=== PATIENT | female | born 1975 | race Caucasian/White ===

== ENCOUNTER → 2017-03-12 | Outpatient (CLI) | payer OTHER ==
[2017-03-12] VITALS (10 sets, daily range): BP systolic 10–130; BP diastolic 64–89; PULSE 64–81
[~2017-03-12] VITALS: Ht 167.6 cm; Wt 51.8 kg
[~2017-03-12] MED LIST: COLACE 100100 MG/CAP PO; NORCO 325 MG-51 TAB PO; PROVERA 10MG10 MG PO; PYRIDIUM200 M1 PO
[2017-03-12 09:57] LABS: PROTHROMBIN TIME 11.4 SECONDS (9.7-12.8)
== END ==
LOC: COL.RAD 09:00
PROVIDERS: Internal Medicine Gastroenterology
DX: K73.9 Chronic hepatitis, unspecified (principal)
CPT/HCPCS: J2250; J3010

== ENCOUNTER 2017-05-03 18:04 | Emergency (ER) | payer OTHER ==
[~2017-05-03] VITALS: Ht 167.6 cm; Wt 59.1 kg
[2017-05-03 18:07] VITALS: TEMP 98.4
[2017-05-03] MEDS ORDERED: PROVERA 10MG10 MG PO (18:48)
[2017-05-03 18:51] LABS: BASO % 0.8 % (0.0-2.0); EOS # 0.1 (0.0-0.7); EOS % 2.3 % (0-4.0); GRAN # 1.5 (1.4-6.5); GRAN % 31.6 % (42.2-75.2); LYMPH # 2.7 (1.2-3.4); LYMPH % 55.9 % (20.0-51.0); MEAN CELL VOLUME 98 fl (80.0-100.0); MEAN CORPUSCULAR HEMOGLOBIN 34 pg (27.0-31.0); MEAN CORPUSCULAR HGB CONC 34 g/dl (33.0-37.0); MEAN PLATELET VOLUME 11.2 fl (7.4-10.4); MONO # 0.4 (0.1-0.6); MONO % 9.2 % (1.7-9.3); PLATELET COUNT 169 K/mm3 (130-400); RED BLOOD COUNT 3.87 M/mm3 (4.10-5.30); WHITE BLOOD COUNT 4.8 K/mm3 (4.8-10.8)
[2017-05-03 18:56] LABS: PH 8 (5-8); SQUAMOUS EPITHELIAL 0-2 /hpf; URINE APPEARANCE Hazy; URINE BACTERIA None Seen /hpf; URINE BILIRUBIN Negative (NEGATIVE); URINE BLOOD Negative (NEGATIVE); URINE COLOR Yellow; URINE GLUCOSE Negative (NEGATIVE); URINE KETONE Negative (NEGATIVE); URINE RBC 0-2 /hpf; URINE UROBILINOGEN Negative (NEGATIVE); URINE WBC 0-2 /hpf
[2017-05-03 19:09] LABS: ADJUSTED CALCIUM 9.1 mg/dL (8.4-10.2); BILIRUBIN,TOTAL 0.5 mg/dL (0.0-1.0); CALCIUM 9.9 mg/dL (8.4-10.2); CREATININE, serum 0.81 mg/dL (0.52-1.25); POTASSIUM 4.2 mmol/L (3.4-5.0); TOTAL PROTEIN 8.5 gm/dL (6.4-8.2)
[2017-05-03 20:44] VITALS: BP 110/84; PULSE 75
== END 2017-05-03 20:44 | disposition home or self-care (01) ==
LOC: COL.ER 18:04
PROVIDERS: Emergency Medicine
DX: R10.84 Generalized abdominal pain (principal); R11.2 Nausea with vomiting, unspecified; R19.7 Diarrhea, unspecified
CPT/HCPCS: J2270; J2405; J7030; Q9967

== ENCOUNTER 2017-05-26 03:04 | Inpatient (IN) | payer OTHER ==
[~2017-05-26] VITALS: Ht 167.6 cm; Wt 61.8 kg
[2017-05-26] VITALS (137 sets, daily range): BP systolic 127–137; BP diastolic 86–97; PULSE 76–96; TEMP 98.1–98.9; O2SAT 84–100
[~2017-05-26 03:04] MED LIST changes: -COLACE 100100 MG/CAP PO; -NORCO 325 MG-51 TAB PO; -PYRIDIUM200 M1 PO
[2017-05-26] MEDS ORDERED: PYRIDIUM200 M1 PO (03:14)
[2017-05-26] MEDS ORDERED: NORCO 325 MG-51 TAB PO (03:14)
[2017-05-26] MEDS ORDERED: COLACE 100100 MG/CAP PO (03:14)
[2017-05-26 04:25] LABS: BASO % 0.2 % (0.0-2.0); EOS # 0.2 (0.0-0.7); EOS % 2.4 % (0-4.0); GRAN # 4.5 (1.4-6.5); GRAN % 68.2 % (42.2-75.2); LYMPH # 1.4 (1.2-3.4); LYMPH % 20.7 % (20.0-51.0); MEAN CELL VOLUME 102 fl (80.0-100.0); MEAN CORPUSCULAR HGB CONC 33 g/dl (33.0-37.0); MEAN PLATELET VOLUME 12.1 fl (7.4-10.4); MONO # 0.5 (0.1-0.6); MONO % 8.2 % (1.7-9.3); PLATELET COUNT 91 K/mm3 (130-400); RED BLOOD COUNT 2.16 M/mm3 (4.10-5.30); REDCELL DISTRIBUTION WIDTH-CV 12.1 % (11.5-14.5); WHITE BLOOD COUNT 6.6 K/mm3 (4.8-10.8)
[2017-05-26 04:26] LABS: HEMATOCRIT 22.1 % (37.0-47.0); HEMOGLOBIN 7.2 g/dl (12.5-16.0); MEAN CORPUSCULAR HEMOGLOBIN 33 pg (27.0-31.0); PH 5 (5-8); SQUAMOUS EPITHELIAL 0-2 /hpf; URINE APPEARANCE Clear; URINE BACTERIA None Seen /hpf; URINE BILIRUBIN Negative (NEGATIVE); URINE BLOOD 3+ (NEGATIVE); URINE COLOR Amber; URINE GLUCOSE Negative (NEGATIVE); URINE KETONE Negative (NEGATIVE); URINE RBC >50 /hpf; URINE UROBILINOGEN >=4.0 mg/dL (NEGATIVE)
[2017-05-26 04:27] LABS: URINE WBC 0-2 /hpf
[2017-05-26 04:35] LABS: ADJUSTED CALCIUM 9.4 mg/dL (8.4-10.2); ALBUMIN 3.6 gm/dL (3.5-5.0); BILIRUBIN,TOTAL 0.4 mg/dL (0.0-1.0); C-REACTIVE PROTEIN 2.4 mg/dL (0.0-0.9); CALCIUM 9.1 mg/dL (8.4-10.2); CREATININE, serum 1.45 mg/dL (0.52-1.25); POTASSIUM 4.4 mmol/L (3.4-5.0); TOTAL PROTEIN 6.6 gm/dL (6.4-8.2)
[2017-05-26 12:45] LABS: MEAN CELL VOLUME 102 fl (80.0-100.0); MEAN CORPUSCULAR HGB CONC 33 g/dl (33.0-37.0); MEAN PLATELET VOLUME 11.3 fl (7.4-10.4); PLATELET COUNT 79 K/mm3 (130-400); RED BLOOD COUNT 2.11 M/mm3 (4.10-5.30); REDCELL DISTRIBUTION WIDTH-CV 12.1 % (11.5-14.5); WHITE BLOOD COUNT 5.1 K/mm3 (4.8-10.8)
[2017-05-26 12:46] LABS: HEMATOCRIT 21.6 % (37.0-47.0); HEMOGLOBIN 7.1 g/dl (12.5-16.0); MEAN CORPUSCULAR HEMOGLOBIN 34 pg (27.0-31.0)
[2017-05-26 15:48] LABS: HEMATOCRIT 26.6 % (37.0-47.0); HEMOGLOBIN 8.8 g/dl (12.5-16.0)
[2017-05-27] VITALS: BP 117/79; PULSE 91; TEMP 97.5
[2017-05-27 04:00] VITALS: BP 125/83; PULSE 79; TEMP 97.6
[2017-05-27 06:45] LABS: MEAN CELL VOLUME 99 fl (80.0-100.0); MEAN CORPUSCULAR HGB CONC 33 g/dl (33.0-37.0); MEAN PLATELET VOLUME 11.3 fl (7.4-10.4); PLATELET COUNT 128 K/mm3 (130-400); RED BLOOD COUNT 2.89 M/mm3 (4.10-5.30); REDCELL DISTRIBUTION WIDTH-CV 13.7 % (11.5-14.5); WHITE BLOOD COUNT 7.1 K/mm3 (4.8-10.8)
[2017-05-27 06:52] LABS: HEMATOCRIT 28.5 % (37.0-47.0); HEMOGLOBIN 9.4 g/dl (12.5-16.0); MEAN CORPUSCULAR HEMOGLOBIN 33 pg (27.0-31.0)
[2017-05-27 07:00] LABS: CALCIUM 8.8 mg/dL (8.4-10.2); CREATININE, serum 1.06 mg/dL (0.52-1.25); POTASSIUM 3.6 mmol/L (3.4-5.0)
[2017-05-27 13:00] VITALS: BP 100/70; PULSE 80; TEMP 98.7
[2017-05-27 19:56] VITALS: BP 131/89; PULSE 85; TEMP 97.9
[2017-05-28 06:09] VITALS: BP 117/78; PULSE 82; TEMP 98.4
[2017-05-28 06:53] LABS: MEAN CELL VOLUME 97 fl (80.0-100.0); MEAN CORPUSCULAR HGB CONC 34 g/dl (33.0-37.0); MEAN PLATELET VOLUME 11.4 fl (7.4-10.4); PLATELET COUNT 125 K/mm3 (130-400); RED BLOOD COUNT 2.75 M/mm3 (4.10-5.30); REDCELL DISTRIBUTION WIDTH-CV 13.4 % (11.5-14.5)
[2017-05-28 07:08] LABS: CALCIUM 8.5 mg/dL (8.4-10.2); CREATININE, serum 0.94 mg/dL (0.52-1.25); HEMATOCRIT 26.7 % (37.0-47.0); MEAN CORPUSCULAR HEMOGLOBIN 33 pg (27.0-31.0); POTASSIUM 4.1 mmol/L (3.4-5.0)
[2017-05-28 09:29] VITALS: BP 126/85; PULSE 70
== END 2017-05-28 10:00 | disposition home or self-care (01) | DRG 919 ==
LOC: COL.ER 03:04 → ICU 05:55 → SURG 05-27 14:17
PROVIDERS: Emergency Medicine; Urology
DX: N99.840 Postprocedural hematoma of a genitourinary system organ or structure following a genitourinary system procedure (principal); J81.0 Acute pulmonary edema; D62 Acute posthemorrhagic anemia; N20.0 Calculus of kidney
CPT/HCPCS: A4315; J1170; J1200; J1940; J1956; J2405; J2550; J7030; P9016

== ENCOUNTER → 2017-06-02 | Outpatient (CLI) | payer OTHER ==
[~2017-06-02] MED LIST changes: +COLACE 100100 MG/CAP PO; +NORCO 325 MG-51 TAB PO; +PYRIDIUM200 M1 PO
== END ==
LOC: COL.RAD 12:59
DX: N20.0 Calculus of kidney (principal); N28.89 Other specified disorders of kidney and ureter; Z98.890 Other specified postprocedural states

== ENCOUNTER 2018-03-04 20:41 | Emergency (ER) | payer OTHER ==
[~2018-03-04] VITALS: Ht 167.6 cm; Wt 59.1 kg
[2018-03-04 20:49] VITALS: BP 119/82; PULSE 62; TEMP 97.9
[2018-03-04] MEDS ORDERED: INDERAL 20MG20 MG PO (21:41)
[2018-03-04] MEDS ORDERED: DOXYCYCLINE 10100 MG PO (21:43)
== END 2018-03-04 22:13 | disposition home or self-care (01) ==
LOC: COL.ER 20:41
DX: L03.032 Cellulitis of left toe (principal)

== ENCOUNTER 2018-04-15 17:42 | Emergency (ER) | payer OTHER ==
[~2018-04-15] VITALS: Ht 167.6 cm; Wt 59.1 kg
[~2018-04-15 17:42] MED LIST changes: +DOXYCYCLINE 10100 MG PO; +INDERAL 20MG20 MG PO
[2018-04-15 17:59] VITALS: BP 139/93; TEMP 97.3
[2018-04-15 19:02] LABS: BASO % 0.8 % (0.0-2.0); EOS # 0.1 (0.0-0.7); EOS % 3.1 % (0-4.0); GRAN # 1.2 (1.4-6.5); GRAN % 32.4 % (42.2-75.2); HEMATOCRIT 34.4 % (37.0-47.0); HEMOGLOBIN 11.8 g/dl (12.5-16.0); LYMPH # 1.9 (1.2-3.4); LYMPH % 51.7 % (20.0-51.0); MEAN CELL VOLUME 100 fl (80.0-100.0); MEAN CORPUSCULAR HEMOGLOBIN 34 pg (27.0-31.0); MEAN CORPUSCULAR HGB CONC 34 g/dl (33.0-37.0); MONO # 0.4 (0.1-0.6); MONO % 11.7 % (1.7-9.3); PLATELET COUNT 161 K/mm3 (130-400); RED BLOOD COUNT 3.43 M/mm3 (4.10-5.30); REDCELL DISTRIBUTION WIDTH-CV 11.6 % (11.5-14.5)
[2018-04-15 19:15] LABS: ALANINE AMINOTRANSFERASE 35 U/L (9-52); ALBUMIN 4.2 gm/dL (3.5-5.0); ALKALINE PHOSPHATASE 52 U/L (50-136); ANION GAP 14 mmol/L (7-16); AST,SGOT 40 U/L (15-37); BILIRUBIN,TOTAL 0.3 mg/dL (0.0-1.0); BLOOD UREA NITROGEN 25 mg/dL (7-17); CALCIUM 9.4 mg/dL (8.4-10.2); CARBON DIOXIDE 30 mmol/L (22-30); CHLORIDE 95 mmol/L (98-107); COLLECTION METHOD CLEAN CATCH; CREATININE, serum 0.89 mg/dL (0.52-1.25); GLUCOSE 81 mg/dL (74-106); POTASSIUM 3.7 mmol/L (3.4-5.0); SODIUM 139 mmol/L (137-145); TOTAL PROTEIN 7.9 gm/dL (6.4-8.2)
[2018-04-15 19:18] LABS: C-REACTIVE PROTEIN < 0.5 mg/dL (0.0-0.9)
[2018-04-15 19:24] LABS: PH 7 (5-8); SQUAMOUS EPITHELIAL 0-2 /hpf; URINE APPEARANCE Clear; URINE BACTERIA None Seen /hpf; URINE BILIRUBIN Negative (NEGATIVE); URINE BLOOD Negative (NEGATIVE); URINE COLOR Yellow; URINE GLUCOSE Negative (NEGATIVE); URINE KETONE Negative (NEGATIVE); URINE LEUKOCYTE ESTERASE Negative (NEGATIVE); URINE NITRATE Negative (NEGATIVE); URINE PROTEIN(semi-quant) Negative (NEGATIVE); URINE RBC 0-2 /hpf; URINE UROBILINOGEN Negative (NEGATIVE)
[2018-04-15] MEDS ORDERED: AMOXICILLIN 8751 TAB PO (19:34)
[2018-04-15 20:05] VITALS: PULSE 62
== END 2018-04-15 20:05 | disposition home or self-care (01) ==
LOC: COL.ER 17:42
PROVIDERS: Family Medicine
DX: L60.0 Ingrowing nail (principal)